=== PATIENT | male | born 1935 | race Caucasian/White ===

== ENCOUNTER 2021-02-27 08:47 | Inpatient (IN) ==
[2021-02-27] MEDS ORDERED: NS 0.9% 1000 ml BAG 1,000 ML IV ONE (09:31)
[2021-02-27 10:28] LABS: Hematocrit 40 % (42-52); Hemoglobin 13.5 g/dL (14.0-18.0); Mean Corpuscular HGB Conc 34 g/dL (31-36); Mean Corpuscular Hemoglobin 31 pg (27-31); Mean Corpuscular Volume 91 fL (80-94); Red Blood Count 4.38 10^6 /uL (4.18-5.48); Red Cell Distribution Width 14 % (10-15); White Blood Count 3.7 10^3/uL (3.5-10.8)
[2021-02-27 10:38] LABS: ALT 94 U/L (7-52); AST 95 U/L (13-39); Albumin 3.9 g/dL (3.2-5.2); Albumin/Globulin Ratio 1.3 (1-3); Alkaline Phosphatase 52 U/L (35-149); Anion Gap 6 mmol/L (2-11); Blood Urea Nitrogen 27 mg/dL (6-24); CO2 Carbon Dioxide 27 mmol/L (22-32); Calcium 9.1 mg/dL (8.6-10.3); Chloride 97 mmol/L (101-111); EGFR African American 50.9 (>60); EGFR Non-African American 42.1 (>60); Globulin 2.9 g/dL (2-4); Glucose 124 mg/dL (70-100); Sodium 130 mmol/L (135-145); Total Protein 6.8 g/dL (6.4-8.9)
[2021-02-27] MEDS ORDERED: Iodixanol (CONTRAST) 320 MG/ML 100 ML SDV IV ONE (10:41)
[2021-02-27 10:47] LABS: Troponin I 0.04 ng/mL (<0.03)
[2021-02-27 10:54] LABS: ABS Lymphocytes 0.3 10^3/ul (1.0-4.8); ABS Monocytes 0.3 10^3/ul (0-0.8); ABS Neutrophils 3.1 10^3/ul (1.5-7.7); Lymphocyte % 6.9 %; Mean Platelet Volume 8.6 fL (7.4-10.4); Platelet Count 45 10^3/uL (150-450)
[2021-02-27 11:18] LABS: TSH Ultra Thyroid Stim Horm 0.17 mcIU/mL (0.34-5.60)
[2021-02-27 11:22] LABS: Free T4 1.05 ng/dL (0.61-1.12)
[2021-02-27 13:18] LABS: Urine Appearance Clear; Urine Bilirubin Negative (Negative); Urine Blood 3+ (Negative); Urine Color Yellow; Urine Glucose Negative (Negative); Urine Ketones Negative (Negative); Urine Nitrite Negative (Negative); Urine Protein 2+(100 mg/dL) (Negative); Urine Specific Gravity 1.033 (1.002-1.030); Urine Urobilinogen Negative (Negative)
[2021-02-27 13:31] LABS: Urine Bacteria Absent (Absent); Urine Red Blood Cell 3+(>10/hpf) (Absent); Urine Squamous Epithelial Cell Present (Absent); Urine White Blood Cell Trace(0-5/hpf) (Absent)
[2021-02-27] MEDS ORDERED: Ondansetron 4 mg VIAL 2 MG/ML 2 ml VIAL IV PRN (13:34)
[2021-02-27] MEDS ORDERED: NS 0.9% 1000 ml BAG 1,000 ML IV SCH (13:45)
[2021-02-27 14:59] LABS: C Reactive Protein 168.46 mg/L (<8.01)
[2021-02-27 16:53] LABS: Troponin I 0.05 ng/mL (<0.03)
[2021-02-27 20:36] LABS: Troponin I 0.05 ng/mL (<0.03)
[2021-02-28 06:23] LABS: Albumin 3.5 g/dL (3.2-5.2); Albumin/Globulin Ratio 1.3 (1-3); Calcium 8.6 mg/dL (8.6-10.3); EGFR African American 62.7 (>60); EGFR Non-African American 51.8 (>60); Globulin 2.6 g/dL (2-4); Potassium 3.6 mmol/L (3.5-5.0); Total Bilirubin 1.5 mg/dL (0.2-1.0); Total Protein 6.1 g/dL (6.4-8.9)
[2021-02-28 06:40] LABS: ABS Lymphocytes 0.3 10^3/ul (1.0-4.8); ABS Monocytes 0.2 10^3/ul (0-0.8); ABS Neutrophils 2.2 10^3/ul (1.5-7.7); Hematocrit 36 % (42-52); Hemoglobin 12.7 g/dL (14.0-18.0); Lymphocyte % 10.9 %; Mean Corpuscular HGB Conc 36 g/dL (31-36); Mean Corpuscular Hemoglobin 32 pg (27-31); Mean Corpuscular Volume 88 fL (80-94); Mean Platelet Volume 8.9 fL (7.4-10.4); Nucleated Red Blood Cells % 0.2; Platelet Count 36 10^3/uL (150-450); Red Blood Count 4.02 10^6 /uL (4.18-5.48); Red Cell Distribution Width 14 % (10-15); White Blood Count 2.7 10^3/uL (3.5-10.8)
[2021-02-28] MEDS ORDERED: [UNRECOGNIZED DRUG - MIXTURE] TOPICAL SCH (09:00)
[2021-02-28 15:12] LABS: INR 1.13 (0.82-1.09)
[2021-02-28 18:44] LABS: C Reactive Protein 195.66 mg/L (<8.01)
[2021-02-28] MEDS: cefTRIAXone 1 gm/50 mL NS BAG 1 GM/50 ML BAG IVPB SCH (18:49)
[2021-02-28 19:07] LABS: Vitamin B12 208 pg/mL (180-914)
[2021-02-28 20:59] LABS: Corrected Retic Count 0.7 % (0.5-1.5); Hematocrit for Retic CNT 36 % (42-52); RBC Retic Count 3.98 10^6/uL (4.18-5.48)
[2021-03-01 06:46] LABS: Hematocrit 37 % (42-52); Hemoglobin 13.1 g/dL (14.0-18.0); Mean Corpuscular HGB Conc 36 g/dL (31-36); Mean Corpuscular Hemoglobin 32 pg (27-31); Mean Corpuscular Volume 88 fL (80-94); Mean Platelet Volume 9.5 fL (7.4-10.4); Platelet Count 34 10^3/uL (150-450); Red Blood Count 4.17 10^6 /uL (4.18-5.48); Red Cell Distribution Width 14 % (10-15)
[2021-03-01 07:05] LABS: Albumin 3.5 g/dL (3.2-5.2); Albumin/Globulin Ratio 1.2 (1-3); Calcium 8.8 mg/dL (8.6-10.3); EGFR African American 60.6 (>60); Globulin 2.9 g/dL (2-4); Potassium 3.2 mmol/L (3.5-5.0); Total Bilirubin 1.1 mg/dL (0.2-1.0); Total Protein 6.4 g/dL (6.4-8.9)
[2021-03-01 08:25] LABS: ABS Lymphocytes 0.8 10^3/ul (1.0-4.8); ABS Monocytes 0.5 10^3/ul (0-0.8); ABS Neutrophils 2.6 10^3/ul (1.5-7.7); Eosinophil % 0.2 %; Lymphocyte % 20.5 %; Nucleated Red Blood Cells % 0.1
[2021-03-01] MEDS: Potassium Chlor 20 meq TAB.ER PO SCH ×2 (10:36→12:33)
[2021-03-01] MEDS: cefTRIAXone 1 gm/50 mL NS BAG 1 GM/50 ML BAG IVPB SCH (17:55)
[2021-03-02 07:14] LABS: Hematocrit 40 % (42-52); Hemoglobin 14.1 g/dL (14.0-18.0); Mean Corpuscular HGB Conc 35 g/dL (31-36); Mean Corpuscular Hemoglobin 31 pg (27-31); Mean Corpuscular Volume 88 fL (80-94); Mean Platelet Volume 9.4 fL (7.4-10.4); Platelet Count 40 10^3/uL (150-450); Red Blood Count 4.52 10^6 /uL (4.18-5.48); Red Cell Distribution Width 14 % (10-15); White Blood Count 5.3 10^3/uL (3.5-10.8)
[2021-03-02 07:22] LABS: Albumin 3.7 g/dL (3.2-5.2); Albumin/Globulin Ratio 1.2 (1-3); C Reactive Protein 115.24 mg/L (<8.01); Calcium 9.3 mg/dL (8.6-10.3); EGFR African American 60.6 (>60); Potassium 3.6 mmol/L (3.5-5.0); Total Bilirubin 0.9 mg/dL (0.2-1.0); Total Protein 6.7 g/dL (6.4-8.9)
[2021-03-02 08:09] LABS: ABS Eosinophils 0.1 10^3/ul (0-0.6); ABS Lymphocytes 1.9 10^3/ul (1.0-4.8); ABS Monocytes 0.6 10^3/ul (0-0.8); ABS Neutrophils 2.6 10^3/ul (1.5-7.7); Lymphocyte % 36.6 %; Nucleated Red Blood Cells % 0.3
[2021-03-02 13:36] VITALS: BP 142/58
[2021-03-04 00:03] LABS: Anaplasma phagocytophilum Positive (Negative); B. miyamotoi PCR, B Negative (Negative); Babesia divergens/MO-1 Negative (Negative); Babesia ducani Negative (Negative); Ehrlichia chaffeensis Negative (Negative); Ehrlichia ewingii/canis Negative (Negative); Ehrlichia muris eauclairensis Negative (Negative)
== END 2021-03-02 14:20 | disposition home health service (06) ==
LOC: MEDTELE 08:47 → ED 08:47 → MEDTELE 15:34
PROVIDERS: ADMIT Internal Medicine; ATTEND Internal Medicine